=== PATIENT | female | born 1995 | race Caucasian/White ===

== ENCOUNTER 2018-05-04 12:32 | Emergency (ER) | payer BC ==
[2018-05-04 13:47] VITALS: BP 114/72
--- NOTE | 2018-05-04 14:12 | UC ---
Throat Pain/Nasal Celestino HPI - HPI Summary HPI Summary: 22-year-old female presents with onset of general malaise, fatigue, nasal congestion, clear nasal drainage, sore throat 4 days ago. Also reports some myalgias especially of the lower back. Denies fever, chills, ear pain, dysphagia, cough, shortness of breath, chest pain, abdominal pain, nausea, or vomiting. - History of Current Complaint Chief Complaint: UCHeadache Stated Complaint: HEADACHE,BODYACHES Time Seen by Provider: 05/04/18 14:00 Hx Obtained From: Patient Hx Last Menstrual Period: states she does not get her period d/t control. ?: No Onset/Duration: Gradual Onset, Lasting Days - 4 Severity: Moderate Pain Intensity: 6 Cough: None Associated Signs & Symptoms: Positive: Nasal Discharge. Negative: Dysphagia, Hoarseness, Sinus Discomfort, Fever, Vomiting, Rash - Allergies/Home Medications Allergies/Adverse Reactions: Allergies Allergy/AdvReac Type Severity Reaction Status Date / Time acetaminophen [From Tylenol] Allergy See Comment Verified 05/04/18 13:47 gluten sensivity AdvReac Unknown Uncoded 05/04/18 13:47 Reaction Details PMH/Surg Hx/FS Hx/Imm Hx Previously Healthy: Yes - Denies significant PMH - Surgical History Surgical History: None - Family History Known Family History: Positive: Non-Contributory - Social History Occupation: Student Lives: With Family Alcohol Use: Weekly Substance Use Type: None Smoking Status (MU): Never Smoked Tobacco - Immunization History Vaccination Up to Date: Yes Review of Systems All Other Systems Reviewed And Are Negative: Yes Constitutional: Negative: Fever, Chills Skin: Negative: Rash Eyes: Negative: Drainage, Eye Redness ENT: Positive: Sore Throat, Nasal Discharge. Negative: Ear Ache, Sinus Congestion, Sinus Pain/Tenderness Respiratory: Negative: Shortness Of Breath, Cough Cardiovascular: Negative: Palpitations, Chest Pain Gastrointestinal: Negative: Abdominal Pain, Vomiting, Nausea Genitourinary: Negative: Dysuria, Hematuria, Frequency, Urgency Is Patient Immunocompromised?: No Physical Exam Triage Information Reviewed: Yes Appearance: Well-Appearing, No Pain Distress, Well-Nourished Vital Signs: Initial Vital Signs Temp 98.4 F 05/04/18 13:44 Pulse 87 05/04/18 13:44 Resp 18 05/04/18 13:44 BP 114/72 05/04/18 13:44 Pulse Ox 100 05/04/18 13:44 Vital Signs Reviewed: Yes Eyes: Positive: Conjunctiva Clear. Negative: Discharge ENT: Positive: Hearing grossly normal, Pharyngeal erythema, Nasal congestion, TMs normal, Tonsillar swelling, Uvula midline. Negative: Tonsillar exudate, Trismus, Muffled voice, Sinus tenderness Respiratory: Positive: Chest non-tender, Lungs clear, Normal breath sounds, No respiratory distress, No accessory muscle use Cardiovascular: Positive: RRR, No Murmur, Pulses Normal, Brisk Capillary Refill Abdomen Description: Positive: Nontender, No Organomegaly, Soft. Negative: CVA Tenderness (R), CVA Tenderness (L), Distended, Guarding Bowel Sounds: Positive: Present Musculoskeletal Exam: Normal Neurological: Positive: Alert Skin Exam: Normal Throat Pain/Nasal Course/Dx - Course Course Of Treatment: 22-year-old female presents with onset of general malaise, fatigue, nasal congestion, clear nasal drainage, sore throat 4 days ago. Also reports some myalgias especially of the lower back. Afebrile. Exam unremarkable except for some nasal congestion, pharyngeal erythema and edema without exudate. Rapid strep positive. Will treat with 10 day course of penicillin VK 500 mg BID as well as symptomatic treatment. She is to follow up with PCP in 7 days if symptoms persist. Warning symptoms reviewed. Verbalizes understaning and agrees with POC. - Differential Dx/Diagnosis Differential Diagnosis/HQI/PQRI: Influenza, Pharyngitis, Tonsillitis, URI Provider Diagnoses: Strep pharyngitis Discharge - Sign-Out/Discharge Documenting (check all that apply): Patient Departure All imaging exams completed and their final reports reviewed: No Studies - Discharge Plan Condition: Stable Disposition: HOME Prescriptions: Penicillin VK 500 MG TAB(NF) [Penicillin VK 500 mg Tab] 500 mg PO BID #20 tab Patient Education Materials: Strep Throat (ED) Referrals: Apolinar Vega MD [Primary Care Provider] - 7 Days (If symptoms persist) Additional Instructions: Your rapid strep test in the clinic today was positive. We will treat the infection with an antibiotic. Take penicillin VK 500 mg 1 tab twice a day for 10 days. Be sure to complete the entire course even if you are feeling better. Take acetaminophen (Tylenol) or ibuprofen (Advil, Motrin) according to directions as needed for fever or pain. Use salt water gargles several times a day if you have a sore throat. You may also use Chloraseptic spray or Cepacol lozenges for some temporary pain relief from your sore throat. Follow-up with your primary care provider in 7 days if symptoms persist. Seek immediate medical attention if you have a persistent fever greater than 100.5 F despite taking acetaminophen or ibuprofen, you are unable to swallow, has difficulty breathing, or have any worsening of symptoms. - Billing Disposition and Condition Condition: STABLE Disposition: Home
== END 2018-05-04 14:44 | disposition home or self-care (01) ==
LOC: UCEAST 12:32
DX: J02.0 Streptococcal pharyngitis (principal); Z88.6 Allergy status to analgesic agent; N95.0 Postmenopausal bleeding
CPT/HCPCS: 87651; 99212; G0463

== ENCOUNTER 2018-05-13 10:57 | Emergency (ER) | payer BC ==
[2018-05-13 11:57] VITALS: BP 130/78
--- NOTE | 2018-05-13 12:12 | UC ---
Lower Extremity/Ankle HPI - HPI Summary HPI Summary: 22 year old female presents with complaints of left ankle pain. States she was out drinking last night and fell. Unsure of exact mechanism of injury. Reports pain to lateral aspect of proximal left foot with mild swelling. Pain worsens with movement. States is unable to bear weight d/t pain. Denies numbness or tingling. - History of Current Complaint Chief Complaint: UCLowerExtremity Stated Complaint: LT ANKLE INJ Time Seen by Provider: 05/13/18 12:00 Hx Obtained From: Patient Hx Last Menstrual Period: states she does not get her period d/t control. ?: No Onset/Duration: Sudden Onset Severity Currently: Moderate Pain Intensity: 7 Aggravating Factor(s): Standing, Ambulation Alleviating Factor(s): Nothing Able to Bear Weight: No - Allergies/Home Medications Allergies/Adverse Reactions: Allergies Allergy/AdvReac Type Severity Reaction Status Date / Time acetaminophen [From Tylenol] Allergy See Comment Verified 05/13/18 11:52 gluten sensivity AdvReac Unknown Uncoded 05/13/18 11:52 Reaction Details PMH/Surg Hx/FS Hx/Imm Hx Previously Healthy: Yes - denies significant PMH - Surgical History Surgical History: None - Family History Known Family History: Positive: Non-Contributory - Social History Occupation: Student Lives: Dormitory/Roommates Alcohol Use: Occasionally Substance Use Type: None Smoking Status (MU): Never Smoked Tobacco - Immunization History Vaccination Up to Date: Yes Review of Systems All Other Systems Reviewed And Are Negative: Yes Skin: Negative: Bruising Motor: Negative: Weakness Neurovascular: Negative: Decreased Sensation Musculoskeletal: Positive: Decreased ROM, Other: - See HPI Is Patient Immunocompromised?: No Physical Exam - Summary Physical Exam Summary: GENERAL APPEARANCE: Well developed, well nourished, alert and cooperative, and appears to be in no acute distress. HEAD: Atraumatic. normocephalic. EYES: PERRL, EOM intact. Vision is grossly intact. NECK: Neck supple, non-tender. CARDIAC: Normal S1 and S2. No S3, S4 or murmurs. Rhythm is regular. There is no peripheral edema, cyanosis or pallor. Extremities are warm and well perfused. Capillary refill is less than 2 seconds. LUNGS: Clear to auscultation and percussion without rales, rhonchi, wheezing or diminished breath sounds. ABDOMEN: Positive bowel sounds. Soft, nondistended, nontender. No guarding or rebound. No masses or hepatosplenomegally. MUSKULOSKELETAL: Normal muscular development. Tenderness with palpation to the lateral aspect of proximal left foot. Mild swelling. No ecchymosis, erythema, or lesions noted. No gross deformity. BACK: Examination of the spine reveals normal gait and posture, no spinal deformity or tenderness, decreased range of motion or muscular spasm. EXTREMITIES: No edema. Peripheral pulses intact. NEUROLOGICAL: Strength and sensation symmetric and intact throughout. SKIN: General skin normal color, texture and turgor. Superficial abrasions to bilateral knees. Triage Information Reviewed: Yes Vital Signs: Initial Vital Signs Temp 98.1 F 05/13/18 11:52 Pulse 89 05/13/18 11:52 Resp 15 05/13/18 11:52 BP 130/78 05/13/18 11:52 Pulse Ox 100 05/13/18 11:52 Vital Signs Reviewed: Yes Diagnostics - Radiology No standard instances Radiology Interpretation Completed By: Radiologist Summary of Radiographic Findings: Patient Name: LUCY ANDERSON Medical Record#: [id number]. Ordering Physician: Akira Reynolds NP Acct.#: [id number]. : 1995 Age: 22 Sex: F Location: [facility]. Exam Date: 120 ADM Status: REG ER. Order Information: ANKLE LEFT 3+VWS. Accession Number: [id number]. CPT: 24267. INDICATION: Left ankle injury. TECHNIQUE: 3 views of the left ankle were obtained. FINDINGS: The bones are in normal alignment. No fracture is seen. Joint spaces appear. maintained. IMPRESSION: NO EVIDENCE FOR FRACTURE. Lower Extremity Course/Dx - Course Course Of Treatment: 22 year old female presents with complaints of left ankle pain. States she was out drinking last night and fell. Unsure of exact mechanism of injury. Reports pain to lateral aspect of proximal left foot with mild swelling. Pain worsens with movement. States is unable to bear weight d/t pain. Denies numbness or tingling. Exam reveals some mild tenderness to the lateral aspect of the left proximal foot. Mild swelling. No erythema, ecchymosis , or gross deformity. X-ray negative for fracture. She also has superficial abrasions to bilateral knees but denies any pain. Will treat for left foot sprain. Non-weight bearing x 1-2 days with slow progression to weight bearing as tolerated. Crutches provided. OTC NSAIDs and RICE. She is to follow up with PCP in 7 days if symptoms persist. Warning symptoms provided. Verbalizes understanding and agrees with POC. - Differential Dx/Diagnosis Differential Diagnosis/HQI/PQRI: Dislocation, Fracture (Closed), Sprain, Other - abrasions Provider Diagnosis: Sprain of left foot, Abrasion of knee, bilateral Discharge - Sign-Out/Discharge Documenting (check all that apply): Patient Departure All imaging exams completed and their final reports reviewed: Yes - Discharge Plan Condition: Stable Disposition: HOME Patient Education Materials: Crutch Instructions (ED), Foot Sprain (ED) Referrals: Apolinar Vega MD [Primary Care Provider] - 7 Days (If symptoms persist.) Additional Instructions: The x-ray performed in the clinic today showed no evidence of a fracture. I suspect that your symptoms are from a sprain of the foot. Rest the foot as much as possible. No weight bearing for 1-2 days then may slowly begin to bear weight as tolerated. Use the crutches that were provided to you. Apply ice to the affected area for 15-20 minutes 4 times a day for the next several days. Keep the foot elevated while sitting to help reduce swelling. Take over the counter ibuprofen (Advil, Motrin) or naproxen (Aleve) according to directions as needed for pain. Follow up with your primary care provider in 7 days if symptoms persist. Seek immediate medical attention in the emergency room if you have pain that is not managed with pain medication, develop numbness or tingling in the foot or toes, or have any worsening of symptoms. - Billing Disposition and Condition Condition: STABLE Disposition: Home
== END 2018-05-13 13:16 | disposition home or self-care (01) ==
LOC: UCCORT 10:57
DX: S93.602A Unspecified sprain of left foot, initial encounter (principal); S80.212A Abrasion, left knee, initial encounter; S80.211A Abrasion, right knee, initial encounter; W19.XXXA Unspecified fall, initial encounter; Y92.9 Unspecified place or not applicable; Z88.6 Allergy status to analgesic agent
CPT/HCPCS: 99211; G0463

== ENCOUNTER 2018-07-19 15:29 | Emergency (ER) | payer BC ==
[2018-07-19 17:17] VITALS: BP 107/67
--- NOTE | 2018-07-19 17:31 | UC ---
Throat Pain/Nasal Celestino HPI - HPI Summary HPI Summary: 22 yo female with sore throat and fever x 1 day Had strep 3 1/2 mos ago no CP or SOB - History of Current Complaint Chief Complaint: UCRespiratory Stated Complaint: SINUSES, SORE THROAT Time Seen by Provider: 07/19/18 17:20 Hx Obtained From: Patient Hx Last Menstrual Period: DOES NOT HAVE PERIODS DUE TO HER CONTROL Onset/Duration: Gradual Onset, Lasting Days Severity: Mild Pain Intensity: 4 Pain Scale Used: 0-10 Numeric Cough: None Associated Signs & Symptoms: Positive: Fever - Allergies/Home Medications Allergies/Adverse Reactions: Allergies Allergy/AdvReac Type Severity Reaction Status Date / Time acetaminophen [From Tylenol] Allergy See Comment Verified 07/19/18 17:10 gluten sensivity AdvReac Unknown Uncoded 07/19/18 17:10 Reaction Details PMH/Surg Hx/FS Hx/Imm Hx Previously Healthy: Yes - Surgical History Surgical History: None - Family History Known Family History: Positive: Hypertension, Diabetes, Non-Contributory - Social History Alcohol Use: Occasionally Substance Use Type: None Smoking Status (MU): Never Smoked Tobacco - Immunization History Vaccination Up to Date: Yes Review of Systems All Other Systems Reviewed And Are Negative: Yes Constitutional: Positive: Fever Skin: Positive: Negative Eyes: Positive: Negative ENT: Positive: Sore Throat Respiratory: Positive: Negative Cardiovascular: Positive: Negative Gastrointestinal: Positive: Negative Genitourinary: Positive: Negative Motor: Positive: Negative Neurovascular: Positive: Negative Musculoskeletal: Positive: Negative Neurological: Positive: Negative Psychological: Positive: Negative Physical Exam Triage Information Reviewed: Yes Appearance: Well-Appearing, No Pain Distress, Well-Nourished Vital Signs: Initial Vital Signs Temp 98.1 F 07/19/18 17:11 Pulse 97 07/19/18 17:11 Resp 16 07/19/18 17:11 BP 107/67 07/19/18 17:11 Pulse Ox 100 07/19/18 17:11 Vital Signs Reviewed: Yes Eyes: Positive: Conjunctiva Clear ENT: Positive: Pharyngeal erythema, TMs normal, Tonsillar swelling, Hoarse voice , Uvula midline. Negative: Nasal congestion, Nasal drainage, Tonsillar exudate , Trismus, Muffled voice, Dental tenderness, Sinus tenderness Neck: Positive: Supple, Nontender, Enlarged Nodes @ - ant cerv Respiratory: Positive: Lungs clear, Normal breath sounds, No respiratory distress, No accessory muscle use Cardiovascular: Positive: RRR, No Murmur Musculoskeletal: Positive: ROM Intact, No Edema Neurological: Positive: Alert Psychological Exam: Normal Skin Exam: Normal Diagnostics - Laboratory Diagnostic Studies Completed/Ordered: strep (+) Throat Pain/Nasal Course/Dx - Differential Dx/Diagnosis Provider Diagnosis: Strep throat Discharge - Sign-Out/Discharge Documenting (check all that apply): Patient Departure All imaging exams completed and their final reports reviewed: No Studies - Discharge Plan Condition: Stable Disposition: HOME Prescriptions: Cephalexin CAP* [Keflex CAP*] 500 mg PO BID #20 cap Patient Education Materials: Strep Throat (DC) Referrals: Apolinar Vega MD [Primary Care Provider] - 4 Days (if not better) - Billing Disposition and Condition Condition: STABLE Disposition: Home
== END 2018-07-19 17:44 | disposition home or self-care (01) ==
LOC: UCCORT 15:29
DX: J02.0 Streptococcal pharyngitis (principal); Z88.8 Allergy status to other drugs, medicaments and biological substances; Z91.018 Allergy to other foods
CPT/HCPCS: 87651; 99212; G0463

== ENCOUNTER 2018-08-01 13:51 | Emergency (ER) | payer BC ==
[2018-08-01 14:19] VITALS: BP 136/75
--- NOTE | 2018-08-01 15:36 | UC ---
Abdominal Pain Female HPI - HPI Summary HPI Summary: The patient is a 22-year-old female with a four-day history of right flank pain. Sometimes her right CVA pain is worse than her abdominal pain. Sometimes her right lower quadrant abdominal pain is worse than her back pain. No n/v/d, no f/c, no UTI symptoms, no vaf d/c or itch, no change in pain with movement, no anorexia, pain 4-5 /10 but worses at times fhx of kidney stones recently rxed for strep - History of Current Complaint Chief Complaint: UCAbdominalPain Stated Complaint: RIGHT SIDED ABD/BACK PAIN Time Seen by Provider: 08/01/18 14:58 Hx Obtained From: Patient Hx Last Menstrual Period: "I don't get it with my control." Onset/Duration: Gradual Onset, Lasting Days Timing: Constant Severity Initially: Mild Severity Currently: Mild Pain Intensity: 4 Pain Scale Used: 0-10 Numeric Location: Other - Right flank Radiates: Yes Radiates to: Back, RLQ Character: Burning, Cramping Aggravating Factor(s): Nothing Alleviating Factor(s): Nothing Associated Signs and Symptoms: Positive: Back Pain. Negative: Diaphoresis, Fever, Cough, Chest Pain, Dizzy, Constipation, Blood in Stool, Urinary Symptoms , Decreased Appetite, Vaginal Bleeding, Vaginal Discharge, Nausea, Vomiting, Diarrhea Allergies/Adverse Reactions: Allergies Allergy/AdvReac Type Severity Reaction Status Date / Time acetaminophen [From Tylenol] Allergy Epistaxis Verified 08/01/18 14:08 gluten sensivity AdvReac Unknown Uncoded 08/01/18 14:08 Reaction Details PMH/Surg Hx/FS Hx/Imm Hx Previously Healthy: Yes - Surgical History Surgical History: None - Family History Known Family History: Positive: Hypertension, Diabetes, Non-Contributory - Social History Alcohol Use: Occasionally Substance Use Type: None Smoking Status (MU): Never Smoked Tobacco - Immunization History Vaccination Up to Date: Yes Review of Systems All Other Systems Reviewed And Are Negative: Yes Constitutional: Positive: Negative Skin: Positive: Negative Eyes: Positive: Negative ENT: Positive: Negative Respiratory: Positive: Negative Cardiovascular: Positive: Negative Gastrointestinal: Positive: Abdominal Pain Genitourinary: Positive: Negative Motor: Positive: Negative Neurovascular: Positive: Negative Musculoskeletal: Positive: Negative Neurological: Positive: Negative Psychological: Positive: Negative Physical Exam Triage Information Reviewed: Yes Appearance: Well-Appearing, No Pain Distress, Well-Nourished Vital Signs: Initial Vital Signs Temp 97.8 F 08/01/18 14:09 Pulse 70 08/01/18 14:09 Resp 16 08/01/18 14:09 BP 136/75 08/01/18 14:09 Pulse Ox 100 08/01/18 14:09 Vital Signs Reviewed: Yes Eyes: Positive: Conjunctiva Clear ENT: Positive: Hearing grossly normal, TMs normal, Tonsillar swelling - mildly, Uvula midline. Negative: Pharyngeal erythema, Nasal congestion, Nasal drainage , Trismus, Muffled voice, Hoarse voice Neck: Positive: Supple, Nontender, Enlarged Nodes @ - sl ant cerv Respiratory: Positive: Lungs clear, Normal breath sounds, No respiratory distress, No accessory muscle use Cardiovascular: Positive: RRR, No Murmur, Pulses Normal Abdomen Description: Positive: Nontender, No Organomegaly, Soft. Negative: CVA Tenderness (R), CVA Tenderness (L) Bowel Sounds: Positive: Present Musculoskeletal: Positive: ROM Intact, No Edema Neurological: Positive: Alert Psychological Exam: Normal Skin Exam: Normal Diagnostics - Laboratory Diagnostic Studies Completed/Ordered: UA tr blood, (-) HCG - Radiology No standard instances Radiology Interpretation Completed By: Radiologist Summary of Radiographic Findings: IMPRESSION: NO EVIDENCE FOR ACUTE FINDING. Abd Pain Female Course/Dx - Differential Dx/Diagnosis Provider Diagnosis: Acute right flank pain Discharge - Sign-Out/Discharge Documenting (check all that apply): Patient Departure All imaging exams completed and their final reports reviewed: Yes - Discharge Plan Condition: Stable Disposition: HOME Patient Education Materials: Flank Pain (ED) Referrals: Apolinar Vega MD [Primary Care Provider] - 2 Days (if not better) Additional Instructions: CT showed kidney stones I am unsure of the cause of your pain aleve or tylenol you do have a lot of stool in your colon I suggest milk or magnesia 30 ml (2 tablespoons) every 6-8 hours for 3 days RECHECK FOR FEVER/WORSENING PAIN/VOMITING OR IF NOT BETTER IN 1-2 DAYS RECHECK IF PAIN WORSENS WITH MOVEMENT/JUMPING - Billing Disposition and Condition Condition: STABLE Disposition: Home
== END 2018-08-01 16:05 | disposition home or self-care (01) ==
LOC: UCCORT 13:51
DX: R10.9 Unspecified abdominal pain (principal); M54.9 Dorsalgia, unspecified; R59.0 Localized enlarged lymph nodes; Z88.8 Allergy status to other drugs, medicaments and biological substances; Z91.018 Allergy to other foods
CPT/HCPCS: 74176; 81003; 84702; 87086; 99211; G0463

== ENCOUNTER 2018-10-01 16:01 | Emergency (ER) | payer BC ==
[2018-10-01 17:41] VITALS: BP 120/73
--- NOTE | 2018-10-01 17:48 | UC ---
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 She complains of dry cough, fever and chills, body aches. She has been around family members with strep. She's had strep throat 2 times since April. - History of Current Complaint Chief Complaint: UCGeneralIllness Stated Complaint: SORE THROAT ACHY FATIGUE SWEATS/CHILLS Time Seen by Provider: 10/01/18 17:42 Hx Obtained From: Patient Hx Last Menstrual Period: "So, I don't really get it on my control..." ?: No Onset/Duration: Gradual Onset Severity: Mild Pain Intensity: 6 Cough: Nonproductive Associated Signs & Symptoms: Positive: Fever - Epiglottits Risk Factors Epiglottis Risk Factors: Negative - Allergies/Home Medications Allergies/Adverse Reactions: Allergies Allergy/AdvReac Type Severity Reaction Status Date / Time acetaminophen [From Tylenol] Allergy Epistaxis Verified 10/01/18 17:38 gluten sensivity AdvReac Unknown Uncoded 10/01/18 17:38 Reaction Details PMH/Surg Hx/FS Hx/Imm Hx Previously Healthy: Yes - Surgical History Surgical History: None - Family History Known Family History: Positive: Hypertension, Diabetes, Non-Contributory - Social History Occupation: Student Lives: Dormitory/Roommates Alcohol Use: Occasionally Substance Use Type: None Smoking Status (MU): Never Smoked Tobacco - Immunization History Vaccination Up to Date: Yes Review of Systems All Other Systems Reviewed And Are Negative: Yes Constitutional: Positive: Fever, Chills ENT: Positive: Sore Throat Respiratory: Positive: Cough - Nonproductive cough. Musculoskeletal: Positive: Myalgia Is Patient Immunocompromised?: No Physical Exam Triage Information Reviewed: Yes Appearance: Well-Appearing, No Pain Distress, Well-Nourished Vital Signs: Initial Vital Signs Temp 99.4 F 10/01/18 17:36 Pulse 102 10/01/18 17:36 Resp 16 10/01/18 17:36 BP 120/73 10/01/18 17:36 Pulse Ox 98 10/01/18 17:36 Vital Signs Reviewed: Yes Eye Exam: Normal ENT: Positive: Pharyngeal erythema - Mild pharyngeal erythema, no exudate., TMs normal, Uvula midline. Negative: Tonsillar exudate, Trismus, Muffled voice, Hoarse voice Neck exam: Normal Neck: Positive: Supple, Nontender, No Lymphadenopathy Respiratory: Positive: Lungs clear, Normal breath sounds, No respiratory distress, No accessory muscle use Cardiovascular: Positive: No Murmur, Pulses Normal, Brisk Capillary Refill, Tachycardia Abdominal Exam: Normal Abdomen Description: Positive: Nontender, No Organomegaly, Soft Bowel Sounds: Positive: Present Throat Pain/Nasal Course/Dx - Course Course Of Treatment: Rapid strep test: Negative. - Differential Dx/Diagnosis Provider Diagnosis: Pharyngitis Discharge - Sign-Out/Discharge Documenting (check all that apply): Patient Departure All imaging exams completed and their final reports reviewed: No Studies - Discharge Plan Condition: Fair Disposition: HOME Patient Education Materials: Pharyngitis (ED) Referrals: Apolinar Vega MD [Primary Care Provider] - Additional Instructions: Increase fluids, rest, Motrin every 6 or 8 hours for pain or fever. Follow up with your primary care provider in 3 or 4 days if no improvement. - Billing Disposition and Condition Condition: FAIR Disposition: Home - Attestation Statements Provider Attestation: Per institutional requirements, I have reviewed the chart, however, I was not consulted specifically or made aware of this patient by the midlevel provider. I did not personally evaluate, interact with , or disposition this patient.
== END 2018-10-01 18:13 | disposition home or self-care (01) ==
LOC: UCCORT 16:01
DX: J02.9 Acute pharyngitis, unspecified (principal); Z88.8 Allergy status to other drugs, medicaments and biological substances; Z91.018 Allergy to other foods
CPT/HCPCS: 87651; 99211; G0463

== ENCOUNTER 2019-03-01 14:58 | Emergency (ER) | payer BC ==
[2019-03-01 16:20] VITALS: BP 109/69
--- NOTE | 2019-03-01 16:54 | UC ---
Throat Pain/Nasal Celestino HPI - HPI Summary HPI Summary: 23-year-old woman comes in with a chief complaint of runny nose sore throat cough chest congestion for about 5 days. Patient's primary concern is she does not have strep throat. Pains worse with swallowing. She has tried various over -the-counter remedies without any help. Describes the sore throat has mild to moderate pain. Does have some mild chest congestion but is not short of breath. - History of Current Complaint Chief Complaint: UCGeneralIllness Stated Complaint: COLD LIKE SYMPTOMS Time Seen by Provider: 03/01/19 16:23 Hx Last Menstrual Period: BCP/no menses Pain Intensity: 0 - Allergies/Home Medications Allergies/Adverse Reactions: Allergies Allergy/AdvReac Type Severity Reaction Status Date / Time acetaminophen [From Tylenol] Allergy Epistaxis Verified 03/01/19 16:20 gluten sensivity AdvReac Unknown Uncoded 03/01/19 16:20 Reaction Details PMH/Surg Hx/FS Hx/Imm Hx Previously Healthy: Yes - Surgical History Surgical History: None - Family History Known Family History: Positive: Hypertension, Diabetes, Non-Contributory - Social History Alcohol Use: Occasionally Alcohol Amount: weekends Substance Use Type: None Smoking Status (MU): Never Smoked Tobacco - Immunization History Vaccination Up to Date: Yes Review of Systems All Other Systems Reviewed And Are Negative: Yes Constitutional: Positive: Negative Skin: Positive: Negative Eyes: Positive: Negative ENT: Positive: Sore Throat, Nasal Discharge, Sinus Congestion Respiratory: Positive: Cough Cardiovascular: Positive: Negative Gastrointestinal: Positive: Negative Motor: Positive: Negative Neurovascular: Positive: Negative Musculoskeletal: Positive: Negative Neurological: Positive: Negative Psychological: Positive: Negative Is Patient Immunocompromised?: No Physical Exam Triage Information Reviewed: Yes Appearance: Well-Appearing, No Pain Distress, Well-Nourished Vital Signs: Initial Vital Signs Temp 98 F 03/01/19 16:17 Pulse 62 03/01/19 16:17 Resp 16 03/01/19 16:17 BP 109/69 03/01/19 16:17 Pulse Ox 100 03/01/19 16:17 Vital Signs Reviewed: Yes Eye Exam: Normal Eyes: Positive: Conjunctiva Clear ENT: Positive: Pharyngeal erythema, Nasal congestion, Nasal drainage, TMs normal Neck: Positive: Supple Respiratory: Positive: Lungs clear, Normal breath sounds, No respiratory distress Cardiovascular: Positive: RRR Musculoskeletal: Positive: Strength Intact, ROM Intact Neurological: Positive: Alert, Muscle Tone Normal Psychological: Positive: Age Appropriate Behavior Skin Exam: Normal Throat Pain/Nasal Course/Dx - Course Course Of Treatment: STREP NEGATIVE - Differential Dx/Diagnosis Provider Diagnosis: Upper respiratory infection, Pharyngitis Discharge ED - Sign-Out/Discharge Documenting (check all that apply): Patient Departure All imaging exams completed and their final reports reviewed: No Studies - Discharge Plan Condition: Stable Disposition: HOME Patient Education Materials: Pharyngitis (ED), Upper Respiratory Infection (ED) Referrals: Apolinar Vega MD [Primary Care Provider] - Additional Instructions: FOLLOW UP WITH YOUR DOCTOR IF NOT COMPLETELY IMPROVED. GET RECHECKED SOONER IF YOUR CONDITION WORSENS OR ANY QUESTIONS OR CONCERNS. - Billing Disposition and Condition Condition: STABLE Disposition: Home
== END 2019-03-01 17:00 | disposition home or self-care (01) ==
LOC: UCCORT 14:58
DX: J06.9 Acute upper respiratory infection, unspecified (principal); J02.9 Acute pharyngitis, unspecified
CPT/HCPCS: 87651; 99211; G0463

== ENCOUNTER 2019-07-27 11:04 | Emergency (ER) | payer BC ==
--- OUTSIDE RECORDS SUMMARY | 2019-07-27 11:33 | XMS REPORT | Continuity of Care Document ---
:1995 External Reference #:[id number] Author Name Christiano Hurst MD (transmitted by agent of provider Pb Bingham) Address [address] [place] [address] Care Team Providers Name Role Phone Apolinar Vega MD - Family Care Team Information Program/Music Director [phone] Medicine Sejal Haynes MD - Pain Medicine Care Team Information Program/Music Director [phone] Problems Active Problems Provider Date Paroxysmal hemicrania Arpita Redd M.D. Onset: 04/04/2017 Spasm Bobby Jovel MD Onset: 12/07/2017 Neck pain Bobby Jovel MD Onset: 10/02/2017 Neuralgia Bobby Jovel MD Onset: 10/02/2017 Social History Type Date Description Comments Sex Unknown ETOH Use Occasionally consumes alcohol Tobacco Use Start: Unknown Patient has never smoked Recreational Drug Use Never Used Drugs Smoking Status Reviewed: 07/17/19 Patient has never smoked Exercise Type/Frequency Exercises regularly M-F 1.5 hours Allergies, Adverse Reactions, Alerts Active Allergies Reaction Severity Comments Date Acetaminophen bloody nose 04/04/2017 Gluten 01/29/2018 Inactive Allergies NKDA 04/04/2017 Medications Active Medications SIG Qnty Indications Ordering Provider Date Theodora Take 1 Tablet By Unknown 0.35mg Tablets Mouth Every Day Melatonin 1 tab by mouth at Unknown 10mg Capsules bedtime as needed for insomnia Immunizations Description No Information Available Vital Signs Date Vital Result Comment 07/17/2019 1:42pm Height 62 inches 5'2" Weight 125.00 lb Heart Rate 60 /min BP Systolic Sitting 118 mmHg BP Diastolic Sitting 68 mmHg Respiratory Rate 16 /min Body Temperature 97.6 F BMI (Body Mass Index) 22.9 kg/m2 01/29/2018 3:32pm Height 62 inches 5'2" Weight 125.00 lb Heart Rate 72 /min BP Systolic Sitting 112 mmHg BP Diastolic Sitting 70 mmHg Respiratory Rate 16 /min BMI (Body Mass Index) 22.9 kg/m2 Results Description No Information Available Procedures Date Code Description Status 01/24/2019 62799 EEG Recording Awake & Drowsy Completed Medical Devices Description No Information Available Encounters Type Date Location Provider Dx Diagnosis Office Visit [facility] Christiano Tomas R10.11 Right upper 1:30p Of Medical Social Worker MD Natali quadrant pain R10.31 Right lower quadrant pain Assessments Date Code Description Provider 07/17/2019 R10.11 Right upper quadrant pain Christiano Hurst MD 07/17/2019 R10.31 Right lower quadrant pain Christiano Hurst MD 01/24/2019 R40.4 Transient alteration of awareness Shyanne Cardenas M.D. Plan of Treatment 07/17/2019 - Christiano Hurst, MDR10.11 Right upper quadrant painReferral:Brandee Schultz M.D., [facility] Specialty GroupFollow up:None [id number] Right lower quadrant pain Functional Status Description No Information Available Mental Status Description No Information Available Referrals Refer to Dr Reason for Referral Status Appt Date Brandee Nguyen M.D. Chronic right sided abdominal pain, GB Created US normal. [address] [place] [address] [phone]
[2019-07-27 11:39] VITALS: BP 117/71
--- NOTE | 2019-07-27 11:52 | UC ---
Throat Pain/Nasal Celestino HPI - HPI Summary HPI Summary: Pt presents with c/o sudden onset of ST that began yesterday. Pt reports that she was treated for strep throat 10 days ago with PENincillin and symptosm resolved. - History of Current Complaint Chief Complaint: UCRespiratory Stated Complaint: SORE THROAT Time Seen by Provider: 07/27/19 11:44 Hx Obtained From: Patient Hx Last Menstrual Period: BCP/no menses ?: No Onset/Duration: Sudden Onset, Lasting Days - started yesterday, Still Present Severity: Moderate Pain Intensity: 4 Cough: None Associated Signs & Symptoms: Positive: Dysphagia - Epiglottits Risk Factors Epiglottis Risk Factors: Sudden Onset - Allergies/Home Medications Allergies/Adverse Reactions: Allergies Allergy/AdvReac Type Severity Reaction Status Date / Time acetaminophen [From Tylenol] Allergy Epistaxis Verified 07/27/19 11:39 gluten sensivity AdvReac Unknown Uncoded 07/27/19 11:39 Reaction Details PMH/Surg Hx/FS Hx/Imm Hx Previously Healthy: Yes - Surgical History Surgical History: None - Family History Known Family History: Positive: Hypertension, Diabetes, Non-Contributory - Social History Occupation: [employer] Lives: Dormitory/Roommates Alcohol Use: Weekly Alcohol Amount: weekends Substance Use Type: None Smoking Status (MU): Never Smoked Tobacco Have You Smoked in the Last Year: No - Immunization History Vaccination Up to Date: Yes Review of Systems All Other Systems Reviewed And Are Negative: Yes Constitutional: Positive: Fatigue Skin: Positive: Negative Eyes: Positive: Negative ENT: Positive: Sore Throat Respiratory: Positive: Negative Cardiovascular: Positive: Negative Gastrointestinal: Positive: Negative Genitourinary: Positive: Negative Motor: Positive: Negative Neurovascular: Positive: Negative Musculoskeletal: Positive: Myalgia Neurological/Mental Status: Positive: Headache Psychological: Positive: Negative Is Patient Immunocompromised?: No Physical Exam Triage Information Reviewed: Yes Appearance: Well-Appearing Vital Signs: Initial Vital Signs Temp 98.2 F 07/27/19 11:36 Pulse 70 07/27/19 11:36 Resp 18 07/27/19 11:36 BP 117/71 07/27/19 11:36 Pulse Ox 100 07/27/19 11:36 Vital Signs Reviewed: Yes Eye Exam: Normal ENT: Positive: Tonsillar swelling, Tonsillar exudate Dental Exam: Normal Neck exam: Normal Respiratory Exam: Normal Cardiovascular Exam: Normal Musculoskeletal Exam: Normal Neurological Exam: Normal Psychological Exam: Normal Skin Exam: Normal Throat Pain/Nasal Course/Dx - Differential Dx/Diagnosis Differential Diagnosis/HQI/PQRI: Mononucleosis, Pharyngitis, Tonsillitis Provider Diagnosis: Strep throat Discharge ED - Sign-Out/Discharge Documenting (check all that apply): Patient Departure All imaging exams completed and their final reports reviewed: No Studies - Discharge Plan Condition: Stable Disposition: HOME Prescriptions: Azithromycin TAB* [Zithromax TAB (Z-MINAL) 250 mg #6 tabs] 2 tab PO .TODAY, THEN 1 DAILY #1 minal Patient Education Materials: Strep Throat (ED) Referrals: Apolinar Vega MD [Primary Care Provider] - If Needed - Billing Disposition and Condition Condition: STABLE Disposition: Home
== END 2019-07-27 12:04 | disposition home or self-care (01) ==
LOC: UCCORT 11:04
DX: J02.0 Streptococcal pharyngitis (principal); R53.83 Other fatigue; Z88.6 Allergy status to analgesic agent; Z91.018 Allergy to other foods
CPT/HCPCS: 87651; 99212; G0463

== ENCOUNTER 2019-08-04 13:34 | Emergency (ER) | payer BC ==
--- OUTSIDE RECORDS SUMMARY | 2019-08-04 14:51 | XMS REPORT | Continuity of Care Document ---
:1995 External Reference #:[id number] Author Name Raquel Foster PA-C Address [address] [place] [address] Care Team Providers Name Role Phone Christiano Hurst MD Care Team Information Cancer Researcher [phone] Christiano Hurst MD - Surgery Care Team Information Cancer Researcher [phone] Problems Active Problems Provider Date Constipation Raquel Foster PA-C Onset: 07/29/2019 Flatulence, eructation and gas pain Raquel Foster PA-C Onset: 2019 Right upper quadrant pain Raquel Foster PA-C Onset: 07/29/2019 Social History Type Date Description Comments Sex Unknown Tobacco Use Start: Unknown Patient has never smoked Smoking Status Reviewed: 07/29/19 Patient has never smoked Allergies, Adverse Reactions, Alerts Active Allergies Reaction Severity Comments Date Tylenol 07/29/2019 Gluten 07/29/2019 Medications Active Medications SIG Qnty Indications Ordering Provider Date Sultana Take 1 Tablet By Unknown 0.35mg Tablets Mouth Every Day Immunizations Description No Information Available Vital Signs Date Vital Result Comment 07/29/2019 1:26pm Height 62 inches 5'2" Weight 126.00 lb BP Systolic 122 mmHg BP Diastolic 90 mmHg Heart Rate 79 /min BMI (Body Mass Index) 23.0 kg/m2 Results Description No Information Available Procedures Description No Information Available Medical Devices Description No Information Available Encounters Description No Information Available Assessments Date Code Description Provider 07/29/2019 R10.11 Right upper quadrant pain Raquel Foster PA-C 07/29/2019 R14.0 Abdominal distension (gaseous) Raquel Foster PA-C 07/29/2019 K59.00 Constipation, unspecified Raquel Foster PA-C Plan of Treatment Future Appointment(s):09/02/2019 1:30 pm - Raquel Foster PA-C at [facility]07/29/2019 - ESTELA Rea CR10.11 Right upper quadrant painR14.0 Abdominal distension (gaseous)K59.00 Constipation, unspecified Functional Status Description No Information Available Mental Status Description No Information Available Referrals Description No Information Available
--- OUTSIDE RECORDS SUMMARY | 2019-08-04 14:51 | XMS REPORT | Continuity of Care Document ---
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 Problems Description No Information Available Social History Type Date Description Comments Sex Female Tobacco Use Reviewed: 03/07/19 Never Smoked Cigars Tobacco Use Reviewed: 03/07/19 Never Smoked A Pipe Smoking Status Reviewed: 03/07/19 Never Smoked A Pipe Tobacco Use Reviewed: 03/07/19 Never Used Smokeless Tobacco ETOH Use Occasionally consumes alcohol Tobacco Use Reviewed: 03/07/19 Patient is a current smoker, smokes some days Recreational Drug Use Denies Drug Use Recreational Drug Use Teaching provided regarding Naloxone/Narcan Training Available At [facility] Tattoo/Piercing Tattoos professionally done Allergies, Adverse Reactions, Alerts Active Allergies Reaction Severity Comments Date Tylenol 03/07/2019 Gluten 03/07/2019 Medications Active Medications SIG Qnty Indications Ordering Provider Date Theodora Unknown Multi Vitamin Unknown Melatonin Unknown History Medications Fluconazole one tab orally 1tabs B37.3 Carol Arreguin NP 03/07/2019 - 150mg x one dose 06/13/2019 Tablets Immunizations Description No Information Available Vital Signs Date Vital Result Comment 06/13/2019 10:15am Body Temperature 97.9 F BP Systolic 118 mmHg BP Diastolic 61 mmHg Heart Rate 64 /min Height 63 inches 5'3" Weight 128.00 lb BMI (Body Mass Index) 22.7 kg/m2 03/07/2019 12:01pm BP Systolic 108 mmHg BP Diastolic 63 mmHg Height 63 inches 5'3" Weight 125.00 lb BMI (Body Mass Index) 22.1 kg/m2 Results Test Acquired Date Facility Test Result H/L Range Note Wet Prep.... 03/07/2019 [facility] WBC Smear 0 Clue Cells Vag Fluid Wet Prep 0 Lucille Wet Prep hyphae and buds Lactobacillus Wet Prep many Whiff Wet Prep neg. Bacteria Wet Prep n/a PH Wet Prep 4.5 Misc Other Test no trich seen Thinprep Tis Pap 03/07/2019 [facility] Clinical Information: Routine exam Normal Reflex HPV Mrna E6/E7 LMP: None given Normal Prev. Pap: None given Normal Prev. BX: None given Normal Source: None given Normal Statement Of Adequacy: (SEE NOTE) Normal 1 General Categorization: EPITHELIAL CELL <SEE NOTE> Abnormal 2 Interpretation/Result: Atypical Squamou <SEE NOTE> Abnormal 3 Comment: This Pap test giron <SEE NOTE> Normal 4 Sales Host: (SEE NOTE) Normal 5 Pathologist: (SEE NOTE) Normal 6 Comment (SEE NOTE) 7 HPV Mrna E6/E7 03/07/2019 [facility] HPV mRNA E6/E7 Not Detected Normal Not Detected 8 Laboratory test 03/07/2019 [facility] PDF SEE IMAGE finding Report [id number] Chlamydia/N. 03/07/2019 [facility] Chlamydia NOT DETECTED Normal Not Detected Gonorrhoeae Rna, Trachomatis Tma, Uroge Rna, Tma, Urogenital Neisseria Gonorrhoeae Rna, Tma, Urogenital NOT DETECTED Normal Not Detected Comment (SEE NOTE) 9 Laboratory test 03/07/2019 [facility] Enhanced PDF Report SEE IMAGE finding [id number] Laboratory test 03/07/2019 [facility] HIV Rapid... non reactive finding Hep C Rapid Test non reactive 1 Satisfactory for evaluation. Endocervical/transformation zone component present. 2 EPITHELIAL CELL ABNORMALITY 3 Atypical Squamous Cells of Undetermined Significance (ASC-US) 4 This Pap test has been evaluated with computer assisted technology. 5 LXT, CT(ASCP) CT screening location: [facility] [place], [address] [place] [address], [place] [address]. 6 Mony Saldaña M.D. Board Certified in Anatomic and Clinical Pathology (electronic signature) For questions regarding this report call Anatomic Pathology at [phone] 7 EXPLANATORY NOTE: The Pap is a screening test for cervical cancer. It is not a diagnostic test and is subject to false negative and false positive results. It is most reliable when a satisfactory sample, regularly obtained, is submitted with relevant clinical findings and history, and when the Pap result is evaluated along with historic and current clinical information. 8 This test was performed using the APTIMA HPV Assay ([employer] This assay detects E6/E7 viral messenger RNA (mRNA) from 14 high-risk HPV types (16,18,31,33,35,39,45,51,52,56,58,59,66,68). The analytical performance characteristics of this assay have been determined by [facility]. The modifications have not been cleared or approved by the FDA. This assay has been validated pursuant to the CLIA regulations and is used for clinical purposes. 9 This test was performed using the APTIMA COMBO2 Assay ([employer] The analytical performance characteristics of this assay, when used to test Sure[facility] specimens have been determined by [facility]. Procedures Description No Information Available Medical Devices Description No Information Available Encounters Type Date Location Provider Dx Diagnosis Office Visit 03/07/2019 [facility] Carol Arreguin NP Z11.3 Encntr screen for 11:30a infections w sexl mode of transmiss Z30.41 Encounter for surveillance of contraceptive pills B37.3 Candidiasis of vulva and vagina N94.10 Unspecified dyspareunia Z11.4 Encounter for screening for human immunodeficiency virus Z11.59 Encounter for screening for other viral diseases Z12.4 Encounter for screening for malignant neoplasm of cervix Z13.9 Encounter for screening, unspecified Assessments Date Code Description Provider 06/13/2019 N94.10 Unspecified dyspareunia Carol Arreguin NP 06/13/2019 Z30.41 Encounter for surveillance of contraceptive Carol Arreguin NP pills 06/13/2019 K59.00 Constipation, unspecified Carol Arreguin NP 03/07/2019 Z11.3 Encounter for screening for infections with a Carol Arreguin NP predominantly sexual mode of transmission 03/07/2019 Z30.41 Encounter for surveillance of contraceptive Carol Arreguin NP pills 03/07/2019 B37.3 Candidiasis of vulva and vagina Carol Arreguin NP 03/07/2019 N94.10 Unspecified dyspareunia Carol Arreguin NP 03/07/2019 Z11.4 Encounter for screening for human Carol Arreguin NP immunodeficiency virus [HIV] 03/07/2019 Z11.59 Encounter for screening for other viral diseases Carol Arreguin NP 03/07/2019 Z12.4 Encounter for screening for malignant neoplasm Carol Arreguin NP of cervix 03/07/2019 Z13.9 Encounter for screening, unspecified Carol Arreguin NP Plan of Treatment 06/13/2019 - Carol Arreguin NPN94.10 Unspecified dyspareuniaNew Xrays: Ultrasound Pelvic Nonob Complete, Ordered: 06/13/19Comments:Advised on stretches for psoas. advised increase time for foreplay. Advised water based lubricant atstart of coitus and with any position changes. Obtain pelvic ultrasound to rule out ovarian cyst. With additional c/o constipation, check thyroid.Follow up:will call patient when test results are received.Z30.41 Encounter for surveillance of contraceptive pillsComments:Patient to continue on ocp. Reviewed use of, side effects and precautions with patient who states understanding. Patient is aware of ECP. She plans to f/u with PCP for bcp refills.K59.00 Constipation, unspecifiedComments:Check thyroid levels. Patient plans f/u with GI. Functional Status Description No Information Available Mental Status Description No Information Available Referrals Description No Information Available
[2019-08-04 15:08] VITALS: BP 119/75
--- NOTE | 2019-08-04 15:23 | UC ---
Throat Pain/Nasal Celestino HPI - HPI Summary HPI Summary: Please see nurse's notes regarding patient's two treatments for strep. She's been on 2 courses of antibiotics and continues to have a sore throat. She is unsure of a fever. - History of Current Complaint Chief Complaint: UCGeneralIllness Stated Complaint: SORE THROAT Time Seen by Provider: 08/04/19 14:50 Hx Obtained From: Patient Hx Last Menstrual Period: no period with BC. ?: No Onset/Duration: Gradual Onset, Lasting Weeks Severity: Mild Pain Intensity: 3 Cough: None Associated Signs & Symptoms: Positive: Fever - Allergies/Home Medications Allergies/Adverse Reactions: Allergies Allergy/AdvReac Type Severity Reaction Status Date / Time acetaminophen [From Tylenol] Allergy Epistaxis Verified 08/04/19 15:01 gluten sensivity AdvReac Unknown Uncoded 08/04/19 15:01 Reaction Details Home Medications: Home Medications Norethindrone (NF) [Theodora (NF)] 0.35 mg PO DAILY 06/29/17 [History Confirmed 08/04/19] Amoxicillin/Clavulanate TAB* [Augmentin TAB 875*] 875 mg PO BID 10 Days #20 tab 08/04/19 [Rx] PMH/Surg Hx/FS Hx/Imm Hx Previously Healthy: Yes - Surgical History Surgical History: None - Family History Known Family History: Positive: Hypertension, Diabetes, Non-Contributory - Social History Occupation: Student Alcohol Use: Occasionally Alcohol Amount: weekends Substance Use Type: None Smoking Status (MU): Never Smoked Tobacco Have You Smoked in the Last Year: No - Immunization History Vaccination Up to Date: Yes Review of Systems All Other Systems Reviewed And Are Negative: Yes Constitutional: Positive: Fever ENT: Positive: Sore Throat Musculoskeletal: Positive: Other: - Patient states she has some posterior neck pain. Is Patient Immunocompromised?: No Physical Exam Triage Information Reviewed: Yes Appearance: Well-Appearing, No Pain Distress, Well-Nourished Vital Signs: Initial Vital Signs Temp 99.2 F 08/04/19 15:02 Pulse 61 08/04/19 15:02 Resp 17 08/04/19 15:02 BP 119/75 08/04/19 15:02 Pulse Ox 100 08/04/19 15:02 Vital Signs Reviewed: Yes Eyes: Positive: Conjunctiva Clear ENT: Positive: Pharyngeal erythema - Mild pharyngeal erythema, no exudate., TMs normal, Uvula midline. Negative: Tonsillar swelling, Tonsillar exudate, Trismus , Muffled voice, Hoarse voice Neck: Positive: Supple, Nontender, No Lymphadenopathy Respiratory: Positive: Lungs clear, Normal breath sounds, No respiratory distress, No accessory muscle use Cardiovascular: Positive: RRR, No Murmur, Pulses Normal, Brisk Capillary Refill Abdomen Description: Positive: Nontender, No Organomegaly, Soft. Negative: CVA Tenderness (R), CVA Tenderness (L), Distended, Guarding, Hepatomegaly, Splenomegaly Bowel Sounds: Positive: Present Musculoskeletal Exam: Normal Musculoskeletal: Positive: Strength Intact, ROM Intact, Other: - Good chin to chest without difficulty. Neurological Exam: Normal Psychological Exam: Normal Skin Exam: Normal Throat Pain/Nasal Course/Dx - Course Course Of Treatment: Rapid strep test: Positive After consultation with Dr. Alarcon we are going to treat her with Augmentin 875 mg by mouth twice a day 10 days. Definite follow-up with an ear nose and throat physician if she has continued sore throat or if she finishes the antibiotic and then has recurrent sore throat. Patient is agreeable to this plan of action. - Differential Dx/Diagnosis Provider Diagnosis: Strep pharyngitis Discharge ED - Sign-Out/Discharge Documenting (check all that apply): Patient Departure All imaging exams completed and their final reports reviewed: No Studies - Discharge Plan Condition: Good Disposition: HOME Prescriptions: Amoxicillin/Clavulanate TAB* [Augmentin TAB 875*] 875 mg PO BID 10 Days #20 tab Patient Education Materials: Strep Throat (DC) Referrals: Apolinar Vega MD [Primary Care Provider] - Isaac Silva MD [Medical Doctor] - Domo Mendez MD [Medical Doctor] - Additional Instructions: Increase fluids, warm saltwater gargles, take the Augmentin with food. Follow- up with an ear nose and throat physician if you have continued sore throat without improvement or you start expressing a sore throat after the antibiotics finished. - Billing Disposition and Condition Condition: GOOD Disposition: Home
== END 2019-08-04 15:55 | disposition home or self-care (01) ==
LOC: UCCORT 13:34
DX: J02.0 Streptococcal pharyngitis (principal); Z91.018 Allergy to other foods; Z88.6 Allergy status to analgesic agent
CPT/HCPCS: 87651; 99212; G0463